=== PATIENT | female | born 1985 | race Hispanic/Latino ===

== ENCOUNTER 2017-03-03 11:16 | Inpatient (IN) | payer OTHER ==
[2017-03-03 12:03] VITALS: BMI 28.3
[2017-03-03 12:46] LABS: BASO % 0.3 % (0.0-2.0); EOS % 0.5 % (0.0-4.0); HEMATOCRIT 35.8 % (34.0-47.0); LYMPH # 2.1 K/uL (1.0-4.3); LYMPH % 24.2 % (20.0-40.0); MEAN CELL VOLUME 86.8 fl (81.0-99.0); MEAN CORPUSCULAR HEMOGLOBIN 28.7 pg (27.0-31.0); MEAN CORPUSCULAR HGB CONC 33.1 g/dL (33.0-37.0); MEAN PLATELET VOLUME 9.8 fl (7.2-11.7); MONO # 0.6 K/uL (0.0-0.8); MONO % 7.4 % (0.0-10.0); NEUT # 5.8 K/uL (1.8-7.0); NEUT % 67.6 % (50.0-75.0); RED CELL DISTRIBUTION WIDTH 13.3 % (11.5-14.5); WHITE BLOOD COUNT 8.6 K/uL (4.8-10.8)
[2017-03-03 12:52] LABS: ALB/GLOB RATIO 1.3 (1.0-2.1); ALKALINE PHOSPHATASE 136 U/L (38-126); ALT/SGPT 34 U/L (9-52); AST/SGOT 23 U/L (14-36); BILIRUBIN,TOTAL 0.2 mg/dl (0.2-1.3); BLOOD UREA NITROGEN 7 mg/dl (7-17); CALCIUM 9.5 mg/dL (8.4-10.2); CARBON DIOXIDE 19 mmol/L (22-30); CHLORIDE 108 mmol/L (98-107); GFR AFRICAN-AMERICAN > 60; GLUCOSE,RANDOM 84 mg/dL (65-105); SODIUM 136 mmol/l (132-148); TOTAL PROTEIN 6.7 G/DL (6.3-8.2)
[2017-03-03] MEDS ORDERED: Penicillin G 5 Million Unit Vial IVPB ONE (13:59)
[2017-03-03] MEDS: Lactated Ringer's 1,000 ML IV SCH (14:00)
--- NOTE | 2017-03-03 14:41 | OBHP ---
Datetime: 03/03/2017 13:40 Admit Comment, IP Provider: CC: IOL for FGR HPI: 31 YO at 37.0 wks IUP with PMH of factor V heterozygous muatation presents to [facility] for I OL for IUGR. Pt was seen at [facility] this morning (03/03/17) at which time she was told that the baby is no t growing as well, baby is 2 weeks behind, after speaking to Dr. Huston, pt was told to come in for IO L. Patient had a normal so far, no complications thus far. Pt endorses taking Hearin 5000 s ubq (Q12) this morning, was initially taking lovonox but switched to hepatin last week on 02/24/17. Den ies LOF, VB, contractions, +FM. OBhx: is seen by Dr. Huston, primigrivid, no hx of STIs PMH: factor V heterozygus, hemmoriods SurHx: toe surg FH: denies smoking, alcohol, drugs Allergies: NKDA Meds: heparin 5000 subq (BID), PNV, topical hemmorid cream Vitals: stable Gen: NAD Cardio: S1S2, no M/G/R Resp: vesicular breathing b/l Abdomen: gravid, NT Ext: no edema, NT FHM: 145, with moderate variability; catagory I Assessment/Plan: 31 YO at 37.0 wks IUP with PMH of factor V heterozygous muatation presents t o [facility] for IOL for IUGR. pt is O+, HIV neg (third tri), RPR neg (third tri), HepB neg, GC neg, an GBS unknown. Heparin this AM. -admit to L_D pt for IOL -continue monitor -penicillin 5 and 2.5 for GBS unk at the start of labor -continue to monitor Dr. Huston to see pt and reassess for IOL. La Read, PGY I OBH ADDENDUM: Pt seen _ examined by me. Agree with above assessment and plan with follwing additions. Pt denies personal h/o for family h/o thrombosis. States she was screened by pmd when her sister tested +. o: platelet 200 I: Induction for IUFGR 37wks P: cervidel placed. induction procedure d/w pt. Datetime: 03/03/2017 12:25 IP Adm Impression: Term, intrauterine IP Chief Complaint Other: IOL IP Admit Plan: Admit to unit; Initiate labor induction protocol Pelvic Type - PN: Adequate Extremities - PN: Normal Abdomen - PN: Normal Back - PN: Normal Breast - PN: Not Done Lungs - PN: Normal Heart - PN: Normal Thyroid - PN: Normal Neurologic - PN: Normal HEENT - PN: Normal General - PN: Normal FHR - Baseline A Provider: 145 Membranes, Provider: Intact EGA AdmitDate IP: 37.0 Vital Signs Provider: Reviewed; Within Normal Limits IP Indication for Induction: IUGR IP Chief Complaint: Other NICHD Variability Prov Fetus A: Moderate 6-25bpm NICHD Accel Fetus A IP Provider: 15X15 FHR Category Provider Fetus A: Category I Dilatation, Provider: 0 Effacement, Provider: 0 Station, Provider: -4 Genitourinary Exam: Normal DTRs - PN: Normal
--- NOTE | 2017-03-03 14:58 | OBADHP ---
Datetime: 03/03/2017 13:40 Admit Comment, IP Provider: CC: IOL for FGR HPI: 31 YO at 37.0 wks IUP with PMH of factor V heterozygous muatation presents to [facility] for I OL for IUGR. Pt was seen at [facility] this morning (03/03/17) at which time she was told that the baby is no t growing as well, baby is 2 weeks behind, after speaking to Dr. Huston, pt was told to come in for IO L. Patient had a normal so far, no complications thus far. Pt endorses taking Hearin 5000 s ubq (Q12) this morning, was initially taking lovonox but switched to hepatin last week on 02/24/17. Den ies LOF, VB, contractions, +FM. OBhx: is seen by Dr. Huston, primigrivid, no hx of STIs PMH: factor V heterozygus, hemmoriods SurHx: toe surg FH: denies smoking, alcohol, drugs Allergies: NKDA Meds: heparin 5000 subq (BID), PNV, topical hemmorid cream Vitals: stable Gen: NAD Cardio: S1S2, no M/G/R Resp: vesicular breathing b/l Abdomen: gravid, NT Ext: no edema, NT FHM: 145, with moderate variability; catagory I Assessment/Plan: 31 YO at 37.0 wks IUP with PMH of factor V heterozygous muatation presents t o [facility] for IOL for IUGR. pt is O+, HIV neg (third tri), RPR neg (third tri), HepB neg, GC neg, an GBS unknown. Heparin this AM. -admit to L_D pt for IOL -continue monitor -penicillin 5 and 2.5 for GBS unk at the start of labor -continue to monitor Dr. Huston to see pt and reassess for IOL. La Read, PGY I OBH ADDENDUM: Pt seen _ examined by me. Agree with above assessment and plan with follwing additions. Pt denies personal h/o for family h/o thrombosis. States she was screened by pmd when her sister tested +. o: platelet 200 I: Induction for IUFGR 37wks P: cervidel placed. induction procedure d/w pt.
--- NOTE | 2017-03-03 20:51 | OBPN ---
Datetime: 03/03/2017 17:00 IP Progress Plan: Continue present management; Induction Membranes, Provider: Intact (Annotations: Data stored by CPN on behalf of user) Contraction Comments Provider: irritablity FHR - Baseline A Provider: 135 Gestation - Est Wks by US: 37.0 Presentation-Admit: Vertex IP Progress Note Comment: Pt seen and examined, US findings discuseed with patient, leoraradhikamagalyhailey ed by MFM , pt would agreed as well. Pt denies any ctx, lof, vb, +FM pt counsled on pain manamgnet due to heparin anesthesia said protocl says to wait 24 hours for epi ural anestheis due ot heparin injection at 8am. vss V:E see above EMF Cat I TC: irribiaty A/P @ 37 wk IOL fr IUGR -cont cervidil -pain mangment -cont toco and efm -npo, ivf Vital Signs Provider: Within Normal Limits NICHD Accel Fetus A IP Provider: 15X15 FHR Category Provider Fetus A: Category I (Annotations: Data stored by CPN on behalf of user) NICHD Variability Prov Fetus A: Moderate 6-25bpm Dilatation, Provider: 0 Effacement, Provider: 0 Station, Provider: -3
[2017-03-03] MEDS ORDERED: Nalbuphine 20 mg/ml Inj (1 ml) IVP PRN (22:19)
[2017-03-04] MEDS ORDERED: Oxytocin 30 units/LR 500ML 30 U/500 ML BAG IV ONE (17:21)
[2017-03-04] MEDS: Lactated Ringer's 1,000 ML IV SCH (18:30)
--- NOTE | 2017-03-05 08:45 | OBPN ---
Datetime: 03/04/2017 09:15 IP Progress Impression: Normal progression of labor IP Progress Plan: Continue present management Membranes, Provider: Intact FHR - Baseline A Provider: 135 IP Progress Note Comment: pt seen and examiend with no complaitn denie lof, vb, +Fm reprots ctx vss efm cat i toco; q 3-5 min a/p @ 37 wk IOL for iUGR -s/p cervidl x 2 -on pitocon per protocol -epirual prn cont curren agmnet Dilatation, Provider: 0 Effacement, Provider: 0 Station, Provider: -3 NICHD Decel Fetus A IP Provider: None
[2017-03-05] MEDS: Lactated Ringer's 1,000 ML IV SCH (09:23)
[2017-03-05] MEDS ORDERED: ceFAZolin 1 GM in Sodium Chloride 0.9% 100 ML IVPB ONE (10:54)
[2017-03-05] MEDS ORDERED: Morphine 5 mg/10 ml preservative-free Inj(Duramorph) ONE (11:03)
[2017-03-05] MEDS ORDERED: ePHEDrine 50 mg/ml Inj ONE (11:03)
[2017-03-05] MEDS ORDERED: Phenylephrine 10 mg/ml Inj ONE (11:04)
--- NOTE | 2017-03-05 11:11 | OBPN ---
Datetime: 03/05/2017 10:53 IP Progress Impression: Arrest of dilatation/descent IP Informed Consent Obtain: Section Delivery IP Progress Plan: Deliver- Section Membranes, Provider: Intact Contraction Comments Provider: q 1-2 min FHR - Baseline A Provider: 130 Gestation - Est Wks by US: 37.2 IP Progress Note Comment: Pt seen and exmained reports ctx q 1-2 min dneies lof, vb, +FM VSS VE: 0/0/-3 MEDS s/p cervidil x 2 pitocin 20 mu/min A?P @ 37.2 wks failed IOL with IUGR -pt counseld on failutre to progress with recommendation of PLTCS R/b/a/i not limtied to bleeding, infection etc blood consent for possible transfuion given Vital Signs Provider: Reviewed; Within Normal Limits FHR Category Provider Fetus A: Category I NICHD Variability Prov Fetus A: Moderate 6-25bpm Dilatation, Provider: 0 Effacement, Provider: 0 Station, Provider: -3 NICHD Decel Fetus A IP Provider: None
[2017-03-05] MEDS ORDERED: Oxycodone/Acetaminophen 5/325 mg Tab PO PRN (12:19)
[2017-03-05] MEDS ORDERED: Bisacodyl 5mg EC Tab PO PRN (12:19)
--- NOTE | 2017-03-05 12:22 | OBDS ---
DELIVERY PERSONNEL Delivery Doctor: Fabiana Huston MD Scrub Nurse: Crhisten Peña OBT Eap Consultant: Rupal Jameson RN/Jordan Russo Anesthesiologist: Libby Castro MD MATERNAL INFORMATION Delivery Anesthesia: Spinal Maternal Complications: None Provider Comments: live female ifnant cepahlic presntnat agpar 7,9 weight 2705 grams ebl 800 ml pediatiricn prseent for deliveyr LABOR SUMMARY EDC: 03/24/2017 00:00 No. Babies in Womb: 1 Attempted: No Labor Anesthesia: None LABOR INFORMATION Reason for Induction: Intrauterine Growth Retardation Cervical Ripening Agents: Cervidil Oxytocin: Induction Group B Beta Strep: Done, Result Unknown Antibiotics # of Doses: 3 Antibiotics Time of Last Dose: 1100 Steroids Given: None Reason Steroids Not Administered: Not Applicable MEMBRANES Membranes Rupture Method: Artificial Rupture of Membranes: 03/05/2017 11:44 Length of Rupture (hrs): 0.00 Amniotic Fluid Color: Clear Amniotic Fluid Amount: Small STAGES OF LABOR Stage 3 hrs: 0 Stage 3 min: 1 CSECTION DELIVERY Primary Indication: Failed Induction Labor: N/A BABY A INFORMATION Infant Delivery Date/Time: 03/05/2017 11:44 Method of Delivery: Born in Route : No : N/A Forceps: N/A Vacuum Extraction: N/A Shoulder Dystocia : No SHOULDER DYSTOCIA BABY A Delivery Date/Time: 03/05/2017 11:44 PRESENTATION/POSITION BABY A Presentation: Cephalic Breech Presentation: N/A PLACENTA INFORMATION BABY A Placenta Delivery Time : 03/05/2017 11:45 Placenta Method of Delivery: Manual Removal Placenta Status: Delivered SCORES BABY A Heart Rate 1 min: >100 bpm Resp Effort 1 min: Slow, Irregular Reflex Irritability 1 min: Cough or Sneeze or Pulls Away Muscle Tone 1 min: Some Flexion of Extremities Color 1 min: Body [place], Extremities Blue Resuscitation Effort 1 min: Tactile Stimulation SCORE 1 MIN: 7 Heart Rate 5 min: >100 bpm Resp Effort 5 min: Good Cry Reflex Irritability 5 min: Cough or Sneeze or Pulls Away Muscle Tone 5 min: Active Motion Color 5 min: Body [place], Extremities Blue Resuscitation Effort 5 min: Tactile Stimulation SCORE 5 MIN: 9 INFORMATION BABY A Gestational Age at Delivery: 37.1 Gestational Status: Term Outcome : Liveborn Condition : Stable Infant Sex: Female IDENTIFICATION/MEDS BABY A ID Band Number: [id number] ID Band Location: Left Leg; Left Arm Vitamin K Given : Not Given Erythromycin Given: Not Given WEIGHT/LENGTH BABY A Infant Birthweight (gms): 2705 Weight (lb): 5 Weight (oz): 15 CORD INFORMATION BABY A No. Cord Vessels: 3 Nuchal Cord : N/A Nuchal Cord Other: na True Knot: na Cord Blood Taken: Yes Infant Suction: Mouth; Nose ASSESSMENT BABY A Infant Complications: None Physical Findings at Delivery: Within Normal Limits Merchandiser/ALS Called : No Infant Care By: /Jordan Carter Transferred To: [facility]
--- NOTE | 2017-03-05 12:31 | PCM.SURG1 ---
Surgeon's Initial Post Op Note - Surgeon's Notes Surgeon: Arlen Huston MD Bottom Polisher: Conrado Carbone MD Type of Anesthesia: Spinal Pre-Operative Diagnosis: Intrauterine growth rstriction, term intrauterien , failed induction of labor Operative Findings: life female infant cephlaic prsent agpar 7,9 pediatricin present fo rdelivery. normal appearing uteur, tubesl and ovaries bilaterally. Dr Conrado Carbone was surgical assistan and present for entire case and essential in gaining entry, retrcation, exposure, holidng bladder blade, obtainign hemostais, an closign all layers. Post-Operative Diagnosis: same as above Operation Performed: Primary low transvsere cesearen section Specimen/Specimens Removed: placenta Estimated Blood Loss: EBL {In ML}: 800 Blood Products Given: N/A Drains Used: No Drains Date of Surgery/Procedure: 03/05/17 Time of Surgery/Procedure: 11:20
[2017-03-05] MEDS ORDERED: DiphenhydrAMINE 50 mg/ml Inj IVP PRN (15:04)
[2017-03-05] MEDS ORDERED: Lactated Ringer's 1,000 ML IV SCH (21:15)
[2017-03-06 08:19] LABS: HEMATOCRIT 36.5 % (34.0-47.0); MEAN CELL VOLUME 87.1 fl (81.0-99.0); MEAN CORPUSCULAR HEMOGLOBIN 29.4 pg (27.0-31.0); MEAN CORPUSCULAR HGB CONC 33.8 g/dL (33.0-37.0); RED CELL DISTRIBUTION WIDTH 13.7 % (11.5-14.5)
[2017-03-06] MEDS: Enoxaparin 40 mg Syringe SC SCH (09:04)
--- NOTE | 2017-03-06 13:22 | OBPPN ---
Datetime: 03/06/2017 09:02 PP Pain Prov: Within normal limits PP Nausea Prov: Denies PP Flatus Prov: No PP BM Prov: No PP Breasts Prov: Normal PP Heart Prov: Normal PP Lungs Prov: Normal PP Abdomen/Uterus Prov: Normal PP Lochia Prov: Normal PP Vulva/Perineum Prov: Normal PP CVA Tenderness Prov: Not Done PP Extremities Prov: Normal PP C/S Incision Prov: Normal PP Progress Prov: Normal PP Impression Prov: Normal progression PP Plan Prov: Continue present management PP Progress Note Prov: S: 31 YO s/p c-sec for arrest of dilation on 03/05/17. Pt is seen and exa mined at bedside, present by bedside. No acute overnight events. Pt was seen in the [facility] this morning. Pt reports mild pelvic pain but is well controlled with pain meds. Tolerating li quids, started on PO diet this AM. Lochia is minimal and improving. Resendez removed this AM, has not vo ided yet. Denies DM and has not passed gas yet. Denies fever/chills, diarrhea, nausea/vomiting, CP/SO B , lightheadedness, calf pain. O: VS: stable, WNL Gen: NAD Cardio: S1S2, no M/G/R Resp: vesicular breathing b/l Abdomen: minimal tenderness around incision area, Uterus is below the umbilicus, bandage is intact , will remove later this AM after patient recieves pain medication. Ext: no edema, NT Assessment/Plan: 31 YO s/p c-sec for arrest of dilation on 03/05/17. Patient is doing well. Pt is tolerating pa in, PO intake and ambulating. POD#1 OOB with caution SCDs for DVT prophylaxis Continue pain medications Continue management Encourage and ambulating Disposition: Anticipate discharge to home on 03/08/17 with oob/ambulatory precaution, F/U with Dr. Hustno in 6 weeks post , 1 week for wound check and 3-4 days for baby. Pt was discussed with attending Dr. Eliu Read, PGY I OB Hospitalist note: This pt was seen and examined by me. Agree with above note. MAHNDO IP PP Procedures: None Vital Signs Provider PP: Reviewed
[2017-03-06] MEDS: Oxycodone/Acetaminophen 5/325 mg Tab PO PRN ×2 (16:38→20:54)
[2017-03-07] MEDS: Oxycodone/Acetaminophen 5/325 mg Tab PO PRN ×2 (01:00→05:01)
[2017-03-07] MEDS: Enoxaparin 40 mg Syringe SC SCH (08:59)
[2017-03-08] MEDS: Oxycodone/Acetaminophen 5/325 mg Tab PO PRN (00:14)
[2017-03-08] MEDS: Enoxaparin 40 mg Syringe SC SCH (09:56)
--- NOTE | 2017-03-08 12:25 | OBPPN ---
Datetime: 03/08/2017 12:25 PP Pain Prov: Within normal limits PP Nausea Prov: Denies PP Flatus Prov: Yes PP BM Prov: Yes PP Breasts Prov: Normal PP Heart Prov: Normal PP Lungs Prov: Normal PP Abdomen/Uterus Prov: Normal PP Lochia Prov: Normal PP Vulva/Perineum Prov: Normal PP CVA Tenderness Prov: Normal PP Extremities Prov: Normal PP C/S Incision Prov: Normal PP Progress Prov: Normal PP Impression Prov: Normal progression PP Plan Prov: Discharge IP PP Procedures: None Vital Signs Provider PP: Reviewed; Within Normal Limits
--- NOTE | 2017-03-08 12:27 | OBDCSUM ---
Datetime: 03/08/2017 11:22 Discharged to, Provider: Home Follow up at, Provider: Dr. Huston Disch Instr Activity: Normal activity Disch Instr Diet: Regular Discharge Instructions, Provider: Routine instructions given Discharge Diagnosis, Provider: Term Delivered; Failed Induction Discharge Time: 03/08/2017 12:00 Follow up in weeks, Provider: 03/16/2017 Disch Referrals: None Contraception discussed, Prov: Yes Disch Activity Restrictions: Minimize stair-climbing; No sexual activity; Nothing in vagina - Interc ourse, tampons, douche Discharge Comment, Provider: continue lovexon once a day if heavy bleeding mroe than 2 pda/ hour, lighthead, dizzyness, CP, SOB, go to ER and call
--- NOTE | 2017-03-08 12:27 | OBPPN ---
Datetime: 03/08/2017 12:25 PP Progress Note Prov: pt seen and examing doing well, pain cotnrolled with motrin, pt ambuaitng, alok dign, passign flatus, +BM, toleraign reuglarc eit, breast feeding, denies any lighthteadness, dizzyne ss VSS PE see above a/ap s/p PLTCS POD #3 stable for discharge d/c home continue lovenxo q 24 hour x 6 weeks minima rot 1 week for incsion check precuaiton sgivne
[2017-03-08 18:47] VITALS: BP 116/67; PULSE 82; RESP 20; TEMP 98.4; O2SAT 99
--- NOTE | 2017-03-09 00:18 | OP ---
PROCEDURE DATE: 03/05/2017 PREOPERATIVE DIAGNOSIS: Intrauterine growth restriction, term intrauterine , failed induction of labor. POSTOPERATIVE DIAGNOSIS: Intrauterine growth restriction, term intrauterine , failed induction of labor. PROCEDURE: Primary low transverse section. SURGEON: Dr. Arlen Huston. STRUCTURAL STEEL EQUIPMENT ERECTOR: Dr. Conrado Carbone. TYPE OF ANESTHESIA: Spinal. OPERATIVE FINDINGS: Live female in cephalic presentation, 's 7 and 9, brick unloader tender present for delivery, normal-appearing uterus, tubes, and ovaries bilaterally. Dr. Conrado Carbone was the surgical oncologist, present for entire case, essential in gaining entry, retraction, exposure, holding the bladder blade, obtaining hemostasis, closing all layers, helped in delivering the baby. ESTIMATED BLOOD LOSS: 800 mL SPECIMEN: Placenta. BLOOD PRODUCTS: None. COMPLICATIONS: None. DESCRIPTION OF PROCEDURE: The patient was taken to the operating room where she was given spinal anesthesia. Once found to be adequate, she was positioned on the operating table in the dorsal supine position. The patient was then prepped and draped in the usual sterile fashion. A time-out was performed, confirmed correct patient and correct procedure. A Pfannenstiel skin incision was made with scalpel carried in line to the underlying fascia with the Bovie. The fascia was incised in midline and the incision was extended laterally with Bovie. The superior aspect of the fascial incision was grasped with Yannick clamps and the underlying rectus muscles were dissected off bluntly. Attention was then turned to the inferior aspect in a similar fashion was grasped, elevated with Yannick clamps and the underlying rectus muscles were dissected off bluntly. The rectus muscles were then bluntly in the midline. The peritoneum was identified and entered in clear space until there was a good visualization of the bladder. The lower end of the Ward was then inserted and the peritoneum was incised with Metzenbaum scissors. The bladder flap was created digitally. The Freedom was then inserted. The lower uterine segment was incised in a transverse fashion. The lower uterine segment incision was extended laterally bluntly. There was clear Amniotic fluid noted. The surgeon's hand entered the uterine cavity. The surgeon's hand entered the uterus and the head was delivered atraumatically. There was nuchal cord noted that was easily reduced, followed by delivery of the shoulders followed by delivery of the body. Both oral and nasal passages of the baby were bulb suctioned. The umbilical cord was clamped and cut. The baby was handed off to waiting brick unloader tender. Cord blood and cord gases were then sent x2. The placenta was then delivered manually. The uterus was exteriorized and cleared off all clots and debris. The uterine incision site was repaired with 0 Vicryl in a running locked fashion. Secondly, the same procedure was used in running imbricating manner. There was good hemostasis at the uterine incision site. There were normal tubes and ovaries. The uterus was then returned to the abdomen. Paracolic gutters were cleared off all clots and debris and there was good hemostasis on the incision site. The peritoneum was reapproximated and closed with 2-0 Chromic in a running continuous fashion. The rectus was reapproximated and closed with 2-0 Chromic in an interrupted manner. Following this the fascia was reapproximated and closed with 0 Vicryl in a running continuous fashion. The subcutaneous space was closed with 2-0 plain in an interrupted manner. The skin was reapproximated and closed with 4-0 Monocryl in a subcuticular fashion. At the end of the procedure, all needle, sponge and instrument counts were noted to be correct x2. The patient tolerated the procedure well and was transferred to recovery room in stable condition. Arlen Huston MD CHRISTOPHER
== END 2017-03-08 13:30 | disposition home or self-care (01) | DRG 766 ==
LOC: H.EROB2 11:16 → H.L&D 11:47 → H.EROB2 12:02 → H.L&D 12:03 → H.OB/GYN 03-05 15:54
PROVIDERS: ADMIT Obstetrics & Gynecology; ATTEND Obstetrics & Gynecology
PROC: 4A1HXCZ Monitoring of Products of Conception, Cardiac Rate, External Approach (ICD-10-PCS; 2017-03-03)
PROC: 10D00Z1 Extraction of Products of Conception, Low, Open Approach (ICD-10-PCS; principal; 2017-03-05)
DX: O36.5930 Maternal care for other known or suspected poor fetal growth, third trimester, not applicable or unspecified (principal); O61.0 Failed medical induction of labor; O62.1 Secondary uterine inertia; O99.820 Streptococcus B carrier state complicating pregnancy; Z37.0 Single live birth; Z3A.37 37 weeks gestation of pregnancy

== ENCOUNTER 2017-04-13 08:08 | Day surgery (SDC) | payer OTHER ==
[2017-04-13] MEDS ORDERED: Lactated Ringer's 500 ML IV ONE (09:42)
[2017-04-13 10:04] VITALS: TEMP 96.8
[2017-04-13] MEDS ORDERED: Propofol 10 mg/ml Inj (20 ML) ONE (11:24)
[2017-04-13] MEDS ORDERED: Lidocaine 2% MPF (5 ml) Inj ONE (11:25)
[2017-04-13 12:27] VITALS: BP 100/63; PULSE 67; RESP 11; O2SAT 100
== END 2017-04-13 12:26 | disposition home or self-care (01) ==
LOC: H.ENDO 08:08
PROVIDERS: ATTEND Internal Medicine Gastroenterology
DX: K62.5 Hemorrhage of anus and rectum (principal); K64.1 Second degree hemorrhoids
CPT/HCPCS: 45378; 88305; J2704; J7120

== ENCOUNTER 2018-10-18 10:28 | Inpatient (IN) | payer BC ==
[2018-10-18] MEDS ORDERED: Lactated Ringer's 1,000 ML IV ONE (10:44)
[2018-10-18] MEDS ORDERED: Lactated Ringer's 1,000 ML IV SCH ×3 (10:45→16:44)
[2018-10-18] MEDS ORDERED: OXYTOCIN/0.9 % NS 20 UNIT/1,000 ML BAG IV ONE (11:37)
[2018-10-18] MEDS ORDERED: Oxytocin 30 UNIT in NS 500 ml 30 UNITS/500 ML BAG IV ONE ×2 (11:37→14:25)
[2018-10-18 11:45] LABS: BASO % 0.4 % (0.0-2.0); EOS % 0.4 % (0.0-4.0); HEMOGLOBIN 10.3 g/dL (12.0-16.0); LYMPH # 1.9 K/uL (1.0-4.3); LYMPH % 25.4 % (20.0-40.0); MEAN CELL VOLUME 81.7 fl (81.0-99.0); MEAN CORPUSCULAR HEMOGLOBIN 27.7 pg (27.0-31.0); MEAN CORPUSCULAR HGB CONC 33.8 g/dL (33.0-37.0); MEAN PLATELET VOLUME 9.2 fl (7.2-11.7); MONO # 0.5 K/uL (0.0-0.8); MONO % 7.1 % (0.0-10.0); NEUT # 4.9 K/uL (1.8-7.0); NEUT % 66.7 % (50.0-75.0); RBC 3.72 Mil/uL (3.80-5.20); RED CELL DISTRIBUTION WIDTH 14.3 % (11.5-14.5); WHITE BLOOD COUNT 7.4 K/uL (4.8-10.8)
[2018-10-18] MEDS ORDERED: ceFAZolin 1 GM in Sodium Chloride 0.9% 100 ML IVPB ONE (12:30)
[2018-10-18] MEDS ORDERED: Morphine 5 mg/10 ml preservative-free Inj(Duramorph) ONE (13:27)
--- NOTE | 2018-10-18 14:23 | OBHP ---
Datetime: 10/18/2018 11:48 IP Adm Impression: Term, intrauterine IP Admit Plan: Admit to unit; Initiate Section protocol Admit Comment, IP Provider: 33 yo f with hx of prev c-sec due to failed induction, IUGR, and pa st medical history of Fact V leiden disorder on lovenox thru out ( last dose 3 week ago) tr ansfionted to heparin present to L_D for crampign pian every 10 min and for repeat cxs. Otherwise charo ferguson have no complains, She denies vaginal discharge, bleeding water gush. Patient denies chest pain, sob, n/v, abdominal pain, diarrhea, constipation, dysuria or polyuria OB Dr. Huston Allergy none Medication: Lovenox ( last dose 3 week ago) PMH FactorV leiden disorder OBGYN: C-sec due to failed induction, IUGR, 19 mo old child PFH: Factor V leiden disorder Social: denies smoke,drink or drug use ROS: all negative except mentioned in HPI Assessment and Plan 33 yo f @ 39 wks GA for repeat CXS Admit to Unit CBC Type and screen Cefazolin 1gm Lactate ringer 1L at 999mls/hr Lactate ringer 1L at 125Mls/HR Pitocin 20 unit 1L at 125 mls/hr ( for after placenta delivery) Pitocin 30 Unit 500ml at 999 mls/hr ( for after placenta delivery) VItal Q4 monitor Intake and output monitor IV insertion Anesthesia Dr Perez consulted PGY1 Case discussed with Dr Robel gonzalez admit to repat cxs data collection technician to or labs antiocs Pelvic Type - PN: Not Done Extremities - PN: Normal Abdomen - PN: Normal Back - PN: Normal Breast - PN: Not Done Lungs - PN: Normal Heart - PN: Normal Thyroid - PN: Normal Neurologic - PN: Normal HEENT - PN: Normal General - PN: Normal FHR - Baseline A Provider: 130 Comments, ACOG Physical Exam: Cardiology Hear s1 s2 heard no murmur or extra heart sound Lung are clear, effortless Abdomen consistent with >20wk , non-tender, bs+ Back no CVA tenderness B/L Extremeties: no calf tenderness Gestation - Est Wks by US: 39.0 IP Hx Assessment: The History has been Reviewed and is Current EGA AdmitDate IP: 39.0 Vital Signs Provider: Reviewed; Within Normal Limits IP Indication for Induction Oth: prev c-sec IP Chief Complaint: Scheduled Section NICHD Variability Prov Fetus A: Moderate 6-25bpm NICHD Accel Fetus A IP Provider: 15X15 FHR Category Provider Fetus A: Category I NICHD Decel Fetus A IP Provider: None Dilatation, Provider: 1 Effacement, Provider: 50 Station, Provider: -3 Genitourinary Exam: Normal DTRs - PN: Not Done
[2018-10-18] MEDS ORDERED: Oxycodone/Acetaminophen 5/325 mg Tab PO PRN ×3 (14:25→16:44)
--- NOTE | 2018-10-18 14:25 | OBDS ---
DELIVERY PERSONNEL Delivery Doctor: Arlen Huston MD Scrub Nurse: Dang Lieberman OBT Maple Sugar Maker: Laura Bolaños RN Anesthesiologist: Chris, MATERNAL INFORMATION Delivery Anesthesia: Spinal Medications in Delivery: ancef 1 gram, pitocin 30 units/500 ml Maternal Complications: None Provider Comments: repeta cs live male infnat cephlaic presentaiotn 9,9 weight of 6lb 8 ounces ebl 800ml peidatrican presnt for dlevyer norm appearing uteurs, tubes and ovaries b/l LABOR SUMMARY EDC: 10/25/2018 00:00 No. Babies in Womb: 1 Attempted: No Labor Anesthesia: Intrathecal LABOR INFORMATION Reason for Induction: Not Applicable Oxytocin: N/A Group B Beta Strep: Negative Antibiotics # of Doses: 0 Antibiotics Time of Last Dose: n/a Steroids Given: None Reason Steroids Not Administered: Not Applicable MEMBRANES Membranes Rupture Method: Artificial Rupture of Membranes: 10/18/2018 13:46 Length of Rupture (hrs): 0.02 Amniotic Fluid Color: Clear Amniotic Fluid Amount: Moderate Amniotic Fluid Odor: None STAGES OF LABOR Stage 3 hrs: 0 Stage 3 min: 1 CSECTION DELIVERY Primary Indication: Repeat Elective CSection Urgency: Elective CSection Incidence: Repeat Labor: No Labor Elective: Elective CSection Incision: Lower Uterine Transverse BABY A INFORMATION Infant Delivery Date/Time: 10/18/2018 13:47 Method of Delivery: Born in Route : No : N/A Forceps: N/A Vacuum Extraction: N/A Shoulder Dystocia : No SHOULDER DYSTOCIA BABY A Delivery Date/Time: 10/18/2018 13:47 PRESENTATION/POSITION BABY A Presentation: Cephalic Cephalic Presentation: Vertex Breech Presentation: N/A PLACENTA INFORMATION BABY A Placenta Delivery Time : 10/18/2018 13:48 Placenta Method of Delivery: Manual Removal Placenta Status: Delivered SCORES BABY A Heart Rate 1 min: >100 bpm Resp Effort 1 min: Good Cry Reflex Irritability 1 min: Cough or Sneeze or Pulls Away Muscle Tone 1 min: Active Motion Color 1 min: Body [place], Extremities Blue Resuscitation Effort 1 min: Tactile Stimulation SCORE 1 MIN: 9 Heart Rate 5 min: >100 bpm Resp Effort 5 min: Good Cry Reflex Irritability 5 min: Cough or Sneeze or Pulls Away Muscle Tone 5 min: Active Motion Color 5 min: Body [place], Extremities Blue Resuscitation Effort 5 min: Tactile Stimulation SCORE 5 MIN: 9 INFORMATION BABY A Gestational Age at Delivery: 39.0 Gestational Status: Term Infant Outcome : Liveborn Infant Condition : Stable Sex: Male IDENTIFICATION/MEDS BABY A ID Band Number: [id number] ID Band Location: Left Leg; Left Arm WEIGHT/LENGTH BABY A Infant Birthweight (gms): 2970 Weight (lb): 6 Weight (oz): 9 CORD INFORMATION BABY A No. Cord Vessels: 3 Nuchal Cord : N/A Cord Blood Taken: Yes Suction: Mouth; Nose ASSESSMENT BABY A Complications: None Physical Findings at Delivery: Within Normal Limits Infant Respirations: Appears Normal Concrete Mixer Truck Driver/ALS Called : No Care By: Jarad Barragan RN Transferred To: Remains with Mother
[2018-10-18] MEDS ORDERED: Atropine 0.4 mg/ml Inj (1 mL) ONE (14:26)
--- NOTE | 2018-10-18 14:30 | PCM.SURG1 ---
Surgeon's Initial Post Op Note - Surgeon's Notes Surgeon: Arlen Huston MD Packing Line Operator: Hamilton Iraheta MD Type of Anesthesia: Spinal Pre-Operative Diagnosis: Term intrauterine , for repeat cesearean section, ealry labor Operative Findings: live male infnat, cephalic presentation, apgars 9,9 weigh of 6lbs 8 ounces. normal appearing uterus, tubes and ovaries bilaterally. pediatrican presnt for delivery. Dr Hamilton Iraheta was assistant director of security and present for entire case and essential in gaining entry, retraction, expsure, holding the bladder blade, closign all layers adn was present for the entire delivery. Post-Operative Diagnosis: same as above Operation Performed: Repeat Cesearean section Specimen/Specimens Removed: placenta Estimated Blood Loss: EBL {In ML}: 800 Blood Products Given: N/A Drains Used: No Drains Post-Op Condition: Good Date of Surgery/Procedure: 10/18/18 Time of Surgery/Procedure: 13:45
[2018-10-18] MEDS ORDERED: DiphenhydrAMINE 50 mg/ml Inj IVP PRN ×2 (14:36→16:44)
[2018-10-19 05:58] LABS: HEMOGLOBIN 9.5 g/dL (12.0-16.0); MEAN CELL VOLUME 81.4 fl (81.0-99.0); MEAN CORPUSCULAR HEMOGLOBIN 27.4 pg (27.0-31.0); MEAN CORPUSCULAR HGB CONC 33.6 g/dL (33.0-37.0); RBC 3.48 Mil/uL (3.80-5.20); RED CELL DISTRIBUTION WIDTH 14.3 % (11.5-14.5); WHITE BLOOD COUNT 8.6 K/uL (4.8-10.8)
[2018-10-19 06:00] LABS: ALBUMIN 2.8 g/dL (3.5-5.0); ALT/SGPT 25 U/L (9-52); AST/SGOT 35 U/L (14-36); BLOOD UREA NITROGEN 12 mg/dl (7-17); CALCIUM 8.6 mg/dL (8.4-10.2); GFR NON-AFRICAN AMERICAN > 60
[2018-10-19] MEDS: Oxycodone/Acetaminophen 5/325 mg Tab PO PRN ×3 (08:30→19:03)
[2018-10-19] MEDS: Multivitamin With Minerals Tab PO SCH (08:30)
[2018-10-19] MEDS ORDERED: Multivitamin With Minerals Tab PO SCH (09:00)
[2018-10-19] MEDS ORDERED: Enoxaparin 40 mg Syringe SC SCH (09:00)
[2018-10-19 09:46] VITALS: BMI 29.4
[2018-10-19] MEDS: Enoxaparin 40 mg Syringe SC SCH (12:39)
[2018-10-19] MEDS ORDERED: Simethicone 80 mg Chewtab PO SCH (16:00)
[2018-10-19] MEDS: Simethicone 80 mg Chewtab PO SCH ×2 (17:24→21:58)
[2018-10-20] MEDS: Oxycodone/Acetaminophen 5/325 mg Tab PO PRN ×2 (00:15→08:31)
--- NOTE | 2018-10-20 01:16 | OBPPN ---
Datetime: 10/20/2018 01:14 PP Pain Prov: Within normal limits PP Nausea Prov: Denies PP Flatus Prov: Yes PP Breasts Prov: Normal PP Heart Prov: Normal PP Lungs Prov: Normal PP Abdomen/Uterus Prov: Normal PP Lochia Prov: Normal PP Vulva/Perineum Prov: Normal PP CVA Tenderness Prov: Normal PP Extremities Prov: Normal PP C/S Incision Prov: Normal PP Progress Prov: Normal PP Impression Prov: Normal progression PP Plan Prov: Continue present management Vital Signs Provider PP: Reviewed; Within Normal Limits
--- NOTE | 2018-10-20 01:18 | OBDCSUM ---
Datetime: 10/20/2018 01:14 Discharged to, Provider: Home Follow up at, Provider: dr beck Disch Instr Activity: Normal activity Disch Instr Diet: Regular Discharge Instructions, Provider: Routine instructions given Discharge Diagnosis, Provider: Term Delivered Discharge Time: 10/20/2018 11:00 Follow up in weeks, Provider: 10 daysa Disch Referrals: None Contraception discussed, Prov: Yes Discharge Comment, Provider: nothign per vagina, no sex, no douchign, no tampons dc in AM Contraception after Delivery: Not Planning to Use
[2018-10-20] MEDS: Simethicone 80 mg Chewtab PO SCH ×2 (04:47→12:07)
--- NOTE | 2018-10-20 05:05 | OP ---
PROCEDURE DATE: 10/18/2018 SURGEON: Arlen Huston MD GENERAL STUDIES PROGRAM CHAIR: Hamilton Iraheta MD ANESTHESIA: Spinal. PREOPERATIVE DIAGNOSIS: Term intrauterine , for repeat section, in labor. POSTOPERATIVE DIAGNOSIS: Term intrauterine , for repeat section, in labor. OPERATIVE FINDINGS: Live male , cephalic presentation, Apgars 9 and 9, weight 6 pounds 8 ounces. Normal appearing uterus, tubes, and ovaries bilaterally. [employer] Commissioner was present for delivery. Dr. Hamilton Iraheta, the manager surgical, was present for the entire case essentially in gaining entry, retraction, exposure, holding the bladder blade, closing all layers and present for the entire case. PROCEDURE PERFORMED: Repeat section. SPECIMEN REMOVED: Placenta. ESTIMATED BLOOD LOSS: 800 mL. BLOOD PRODUCTS: None. COMPLICATIONS: None. DESCRIPTION OF PROCEDURE: The patient was taken to the operating room where she was given spinal anesthesia. Once it was found to be adequate, she was placed on the operating room table in dorsal supine position. The patient was prepped and draped in the usual sterile fashion. Time-out was confirmed correct patient and correct procedure. Bimanual exam was performed with the above mentioned findings in the operative report. After the patient was noted to have adequate anesthesia, a Pfannenstiel skin incision was made with a scalpel and carried down to the underlying fascia with the Bovie. The fascia was incised in the midline. The incision was extended laterally with the Bovie. The inferior aspect of the fascial incision was grasped with Allis and Yannick clamps, and the underlying rectus muscles were dissected off bluntly. Attention was then turned to the superior aspect of the fascial incision, which is in a similar fashion was grasped, elevated with Yannick clamps, and underlying rectus muscles were resected off bluntly. The rectus muscle was then bluntly in the midline. The peritoneum was identified and entered into clear space. The incision was extended laterally and superiorly until there was good visualization of the bladder. The lower end of the Ward was then inserted. Thus, the peritoneum was incised with the Metzenbaum scissors. Bladder flap was created digitally, and the lower end of the [place] was then reinserted. The lower uterine segment was incised in a transverse fashion. The uterine incision was extended laterally with bandage scissors. The amniotic membranes were then ruptured. Clear fluid was noted. The surgeon's hand entered the uterine cavity. The 's head was then delivered atraumatically followed by delivery of the shoulders followed by delivery of the body. Both oral and nasal passages of the baby were bulb suctioned. The umbilical cord was clamped and cut. The baby was handed off to awaiting internetworking technician. Cord blood and cord gases were collected and sent x2. The placenta was then delivered manually. The uterus was exteriorized and cleared off all clots and debris. The uterine incision was repaired with 0 Vicryl in a running continuous locked fashion. A second layer of the same suture was used to close the uterus in a running imbricating manner. The uterus was then returned to the abdomen. There was good hemostasis noted. The paracolic gutters were cleared of all clots and debris. The peritoneum was reapproximated with 2-0 chromic in a running continuous fashion. The rectus was reapproximated and closed with 2-0 chromic in an interrupted manner. The fascia was reapproximated and closed with 0 Vicryl in a running continuous fashion. The subcutaneous layers were closed with 2-0 plain in an interrupted manner. The skin was reapproximated and closed with a 4-0 Monocryl in a running subcuticular fashion. At the end of the procedure, all needles, sponge, and instrument counts were noted as correct x2. The patient tolerated the procedure well and was transferred to the recovery room in stable condition. Arlen Huston MD
[2018-10-20] MEDS ORDERED: Measles, Mumps, and Rubella 0.5 ML VIAL SC ONE (08:24)
[2018-10-20] MEDS: Multivitamin With Minerals Tab PO SCH (08:31)
[2018-10-20] MEDS: Enoxaparin 40 mg Syringe SC SCH (08:32)
[2018-10-20 19:09] VITALS: BP 93/62; PULSE 72; RESP 18; TEMP 98.2; O2SAT 97
== END 2018-10-20 14:10 | disposition home or self-care (01) | DRG 788 ==
LOC: H.L&D 10:46 → H.OB/GYN 16:27
PROVIDERS: ADMIT Obstetrics & Gynecology; ATTEND Obstetrics & Gynecology
PROC: 10D00Z1 Extraction of Products of Conception, Low, Open Approach (ICD-10-PCS; principal; 2018-10-18)
PROC: 4A1HXCZ Monitoring of Products of Conception, Cardiac Rate, External Approach (ICD-10-PCS; 2018-10-18)
DX: O34.211 Maternal care for low transverse scar from previous cesarean delivery (principal); N85.8 Other specified noninflammatory disorders of uterus; Z3A.39 39 weeks gestation of pregnancy; Z37.0 Single live birth